=== PATIENT | female | born 1980 ===

== ENCOUNTER 2019-03-25 05:40 | Observation (INO) | payer BC ==
[2019-03-25] VITALS (18 sets, daily range): BP systolic 84–115; BP diastolic 38–72
[~2019-03-25] VITALS: Ht 157.5 cm; Wt 55.3 kg
[~2019-03-25 05:40] MED LIST: NAPROXEN500 M2 ORAL; OMEPRAZOLE20 M3 ORAL
[2019-03-25] MEDS ORDERED: cefOXitin Sod 2 GM in D5W 110 ML IVPB ONE (07:00)
[2019-03-25] MEDS ORDERED: Lidocaine 1% MPF 10mg/ml 5ml ONE (07:05)
[2019-03-25] MEDS ORDERED: Propofol 200mg/20ml IV ONE (07:05)
[2019-03-25] MEDS ORDERED: Midazolam 2mg/2ml Inj ONE (07:05)
[2019-03-25] MEDS ORDERED: fentaNYL 100 mcg/2 mL IV ONE (07:05)
[2019-03-25] MEDS ORDERED: Zemuron 50mg/5ml Inj IV ONE (07:24)
[2019-03-25] MEDS ORDERED: cefOXitin 1gm Inj ONE (07:24)
[2019-03-25] MEDS ORDERED: Succinylcholine 20mg/ml 10ml vial ONE (07:24)
[2019-03-25] MEDS ORDERED: ProvayBlue 5mg/ml 10ml amp INJ ONE (07:30)
[2019-03-25] MEDS ORDERED: LR 1000ml ONE (07:30)
[2019-03-25] MEDS ORDERED: Sterile Water Irrig 1000ml IRRIG ONE (07:30)
[2019-03-25] MEDS ORDERED: Neostigmine 1mg/ml 10ml Inj ONE (07:30)
[2019-03-25] MEDS ORDERED: NS Irrig 1000ml ONE (07:30)
[2019-03-25] MEDS ORDERED: Ropivacaine 5mg/ml Vial 30ml INJ ONE (07:37)
--- NOTE | 2019-03-25 07:45 | Pre-Procedure Note/Attestation ---
Pre-Procedure Note/Attestation Complete Prior to Procedure Planned Procedure: bilateral Procedure Narrative: Video Laser Laparoscopy, Video hysteroscopy Indications for Procedure Pre-Operative Diagnosis: Chronic pelvic pain, irregular uterine bleeding Attestation I attest that I discussed the nature of the procedure; its benefits; risks and complications; and alternatives (and the risks and benefits of such alternatives ), prior to the procedure, with the patient (or the patient's legal representative government relations). I attest that, if there was a reasonable possibility of needing a blood transfusion, the patient (or the patient's legal representative government relations) was given the [facility] standardized written summary, pursuant to the [place] Blood Safety Act ([place] Health and Safety Code # 1645, as amended). I attest that I re-evaluated the patient just prior to the surgery and that there has been no change in the patient's H&P, except as documented below:NONE Magan Rivera MD Mar 25, 2019 07:45
[2019-03-25] MEDS ORDERED: Ketorolac 30mg Inj ONE (08:18)
[2019-03-25] MEDS ORDERED: Glycopyrrolate 0.2mg/ml 1ml Vial ONE (08:18)
[2019-03-25] MEDS ORDERED: Morphine Sulfate 10mg/ml Inj ONE (08:18)
[2019-03-25] MEDS ORDERED: Sodium Chloride 10ml vial INJ ONE (08:18)
[2019-03-25] MEDS ORDERED: LR 1000ml 1,000 ML IVLG SCH (08:35)
--- NOTE | 2019-03-25 08:35 | Anethesia Preoperative Eval ---
Anesthesia Pre-op PMH/ROS General Date of Evaluation: Mar 25, 2019 Time of Evaluation: 07:15 Anesthesiologist: Catherine ASA Score: ASA 1 Mallampati Score Class I : Soft palate, uvula, fauces, pillars visible Class II: Soft palate, uvula, fauces visible Class III: Soft palate, base of uvula visible Class IV: Only hard plate visible Mallampati Classification: Class II Surgeon: Nicole Diagnosis: Pelvic pain Surgical Procedure: D&S Laparoscopy Anesthesia History: none Family History: no anesthesia problems Allergies: Coded Allergies: No Known Allergies (Unverified , 03/23/19) Medications: see eMAR Patient NPO?: Yes Past Medical History Cardiovascular: Denies: HTN, CAD, [place], valve dz, arrhythmia, other Pulmonary: Denies: asthma, COPD, SHERLY, other Gastrointestinal/Genitourinary: Reports: GERD; Denies: CRI, ESRD, other Neurologic/Psychiatric: Reports: other - chronic pain; Denies: dementia, CVA, depression/anxiety, TIA Endocrine: Denies: DM, hypothyroidism, steroids, other HEENT: Denies: cataract (L), cataract (R), glaucoma, [place] (L), [place] (R), other Hematology/Immune: Denies: anemia, DVT, bleeding disorder, other Musculoskeletal/Integumentary: Denies: OA, RA, DJD, DDD, edema, other PMH Narrative: as above PSxH Narrative: salpingectomy Anesthesia Pre-op Phys. Exam Physician Exam Last Vital Signs Date Time Temp Pulse Resp B/P (MAP) Pulse Ox O2 Delivery O2 Flow Rate FiO2 03/25/19 06:23 97.5 53 20 90/55 99 Room Air Constitutional: NAD Neurologic: CN 2-12 intact Cardiovascular: RRR, no M/R/G Gastrointestinal: S/NT/ND Airway Exam Mallampati Score: Class II MO: full Neck: flexible ROM: full Teeth: intact Dentures: no upper, no lower Anesthesia Pre-op A/P Labs see chart Urine Test Test 03/25/19 05:58 Urine HCG, Qualitative Negative (NEGATIVE) Studies Pre-op Studies: EKG - NSR Risk Assessment & Plan Assessment: ASA 2 Plan: GA with ETT PONV prevention Status Change Before Surgery: No Pre-Antibiotics Drug: Cefoxetin 1gr. Given Within 1 Hr of Incision: Yes Time Given: 08:15 Phoenix Alexander MD Mar 25, 2019 08:35
[2019-03-25] MEDS ORDERED: Ketorolac 30mg Inj IV PRN (08:45)
[2019-03-25] MEDS ORDERED: Meperidine 50mg/ml Inj(FOR RIGORS ONLY) IV PRN (08:45)
[2019-03-25] MEDS ORDERED: DiphenhydrAMINE 50mg/ml Inj IVP PRN (08:45)
[2019-03-25] MEDS ORDERED: Metoclopramide 10mg/2ml Inj IVP PRN (08:45)
[2019-03-25] MEDS ORDERED: NS Irrig 1000ml IRRIG ONE ×2 (09:12→09:13)
--- NOTE | 2019-03-25 09:56 | Immediate Post-Op Evaluation ---
Immediate Post-Op Evalulation Immediate Post-Op Evalulation Procedure: D&C Hysteroscopy Laparoscopic treatment of endometriosis Date of Evaluation: Mar 25, 2019 Time of Evaluation: 09:55 IV Fluids: 1000 Blood Products: none Estimated Blood Loss: 50 Urinary Output: 200 Blood Pressure Systolic: 115 Blood Pressure Diastolic: 56 Pulse Rate: 72 Respiratory Rate: 20 O2 Sat by Pulse Oximetry: 98 Temperature (Fahrenheit): 97.4 Pain Score (1-10): 1 Nausea: No Vomiting: No Complications none Patient Status: reacts, patent, extubated, none Hydration Status: adequate Phoenix Alexander MD Mar 25, 2019 09:56
[2019-03-25] MEDS ORDERED: HYDROmorphone 1mg/ml Carpuject SUBQ PRN (10:00)
[2019-03-25] MEDS ORDERED: HYDROcodone/Acetamin 5/325 tab ORAL PRN ×2 (10:00→17:30)
[2019-03-25] MEDS ORDERED: Tylenol #3 tab (300mg/30mg) ORAL PRN (10:00)
--- NOTE | 2019-03-25 10:02 | Brief Operative Note ---
Immediate Post Operative Note Operative Note Pre-op Diagnosis: Chronic pelvic pain, irregular uterine bleeding Procedure: D&C, Hysteroscopy, ECC, EMC, Video Laser Pelviscopy with vaporization of endometriosis - multiple lesions, Enterolysis, excision of abdominal wall endometriosis Post-op Diagnosis: Pelvic Endometriosis, pelvic pain, pelvic adhesions, bowel adhesions Findings: consistent w/pre-op dx studies Surgeon: Dipika Rivera MD Mineral Surveying Technician: Bina Leon MD Anesthesiologist: Earnestine Alexander MD Anesthesia: general Specimen: yes - ECC, EMC, Abdom wall tissue, Uterine tissue Complications: none Condition: stable Fluids: LR D5 @ 125 cc.hr Estimated Blood Loss: minimal Drains: none Implant(s) used?: No - 75 cc Dipika Rivera MD Mar 25, 2019 10:02
--- NOTE | 2019-03-25 12:06 | 48 Hour Post Anesthesia Eval ---
Post Anesthesia Evaluation Procedure: D&C Hysteroscopy Laparoscopic treatment of endometriosis Date of Evaluation: Mar 25, 2019 Time of Evaluation: 12:05 Blood Pressure Systolic: 92 - 56 0: 56 Pulse Rate: 72 Respiratory Rate: 20 Temperature (Fahrenheit): 97.6 O2 Sat by Pulse Oximetry: 98 Airway: patent Nausea: No Vomiting: No Pain Intensity: 1 Hydration Status: adequate Cardiopulmonary Status: stable Mental Status/LOC: patient returned to baseline Follow-up Care/Observations: n/a Post-Anesthesia Complications: none Follow-up care needed: ready to discharge Phoenix Alexander MD Mar 25, 2019 12:06
--- NOTE | 2019-03-25 16:00 | Operative Note - Dictated ---
DATE OF OPERATION: 03/25/2019 PREOPERATIVE DIAGNOSES: Severe pelvic pain, severe dysmenorrhea, history of endometriosis, and history of multiple previous surgeries. PROCEDURE PERFORMED: Video laser pelviscopy with enterolysis, video laser pelviscopy with extensive lysis of pelvic adhesions, video laser pelviscopy with excision of abdominal wall endometriosis, video laser pelviscopy with vaporization of pelvic and abdominal endometriosis, video hysteroscopy, endocervical curettage, endometrial curettage, and biopsy of the uterine lesion. SURGEON: Magan Rivera M.D. MACHINE CANDLE MOLDER: Bina Leon M.D. ANESTHESIOLOGIST: Phoenix Alexander M.D. ANESTHESIA: General endotracheal. PROCEDURE IN DETAIL: After appropriate consents were signed, the patient was brought to the operating room, placed on table in supine position. General endotracheal anesthesia was induced without complication. The patient was then placed in a dorsal lithotomy position. Perineum, vagina, and abdomen were prepped and draped in the usual fashion for the procedure. The patient was examined under anesthesia. Cervix was identified and the cervical os was dilated to admit the video hysteroscope. Uterine cavity could be identified, however, both tubes could not be seen. There was only 1 of the tubal ostia, which was not well defined. At this time, endocervical curettage was performed followed by endometrial curettage. Both specimens submitted to pathology for evaluation. Uterine manipulator was placed and the abdominal portion of the procedure began by placing a Veress needle and insufflating the abdomen to 15 mmHg through the umbilicus. The umbilical incision was then used to advance the 11 mm trocar. Two additional trocars were placed in the midline and the left lower quadrant of the patient. The procedure then continued with visualizing the pelvis. There were obvious multiple adhesions in the pelvis and multiple areas of endometriosis visible. The left tube was completely wrapped around the uterus and attaching towards the right side of the uterine fundus. The left ovary was completely sucked underneath the uterus and was fully attached to the left pelvic sidewall anteriorly underneath the uterus. There were bowel adhesions on the right side and some bowel adhesions to the uterus itself. At this time, the procedure began with video laser pelviscopy to proceed with enterolysis that allowed visibility in the pelvis and additional pelvic adhesiolysis was undertaken to visualize the tube and the ovaries fully. At this time, several areas of endometriosis were excised and vaporized. White endometriosis on the left pelvic sidewall was also biopsied. There were multiple bowel adhesions on the right pelvic sidewall. These were gradually lysed and all the adhesions were taken down. The upper abdomen was now fully visualized and was within normal. There did not appear to be any liver adhesions. Once this was completed, the uterus was examined now that it could be well visualized. There was an anterior mass on the uterus, which was biopsied. It was likely adenomyosis. The remaining of the mass was vaporized using CO2 laser to reduce some of the patient's pain during the menses. At this time, when all the endometriosis and adhesions were treated, the patient was once again evaluated and the pelvis was found hemostatic after the several small bleeders were coagulated. The patient's punctures were fully examined after the instruments were removed and all the punctures were fully hemostatic. The midline trocar from the umbilicus was removed with laparoscopy removal. Incisions were now closed using 0 Vicryl suture at the fascia layer and Steri-Strips and benzoin at the skin layer. The patient was awakened from general anesthesia, placed in supine position, and transferred to the recovery room in excellent condition. Magan Rivera M.D. DR: MICHAEL JOB#: [id number] CC:
--- NOTE | 2019-03-25 17:14 | NUR ---
Dr. Rivera notified re: patient unable to void and with orders.
--- NOTE | 2019-03-25 17:45 | NUR ---
Rodriguez catheter Fr. 16 inserted without difficulty and obtained 500ml of clear yellow urine.
--- NOTE | 2019-03-25 18:30 | NUR ---
NURSE NOTES: Patient received from ER via gurney at 1830, in stable condition. No SOB on RA, denies pain/NV. IV to left hand intact, site asymptomatic. FC patent, draining y/cl urine to gravity (orders to DC in AM and make sure patient voids prior to DC). Abdominal dressing x3 intact, lower (stained/shadow), others CDI. Oriented patient to room and call light for safety. All belongings with family member. Will endorse orders/POC to next shift.
--- NOTE | 2019-03-25 20:05 | NUR ---
HAND-OFF: Report given to Camryn WRAY. Addendum: 03/25/19 at 2026 by Tali Rios RN Endorsed orders for DC bowie at 0600, make sure patient voids prior to DC and discharge 03/26 (23 hour observation).
--- NOTE | 2019-03-25 20:07 | NUR ---
NURSE NOTES: Pt received in bed, alert and oriented, able to make needs known, call light within reach, no c/o pain or signs of distress, will continue to monitor, bowie catheter in place and will plan to DC in AM and needs to void prior to discharge.
[2019-03-25] MEDS: D5 1/2NS 1,000 ML IV SCH (20:17)
[2019-03-26] VITALS: BP 105/66
[2019-03-26 04:00] VITALS: BP 89/57
[2019-03-26 04:30] VITALS: BP 90/54
[2019-03-26] MEDS: D5 1/2NS 1,000 ML IV SCH ×2 (05:22→08:39)
--- NOTE | 2019-03-26 06:48 | NUR ---
NURSE NOTES: Left message with doctors exchange for Magan Chahal regarding pt current BP of 90/54, previous BP 89/57.
--- NOTE | 2019-03-26 07:44 | NUR ---
HAND-OFF: Report given to Dianna Sánchez RN.
[2019-03-26] MEDS ORDERED: IBUPROFEN600 MG ORAL (07:47)
[2019-03-26] MEDS ORDERED: NORCO 5-325 TA1 EACH ORAL ×2 (07:49→07:52)
[2019-03-26 08:00] VITALS: BP 95/63
--- NOTE | 2019-03-26 08:01 | NUR ---
NURSE NOTES: Received report from KAMALA Cowan. Rounding done with outgoing nurse. Patient is a/o x 4 having breakfast, sitting on the chair. Patient c/o pain of lower abdominal area as 8/10. Pain medicine will be given as MD ordered. No active bleeding noted. Call light within reach. Will continue to monitor.
--- NOTE | 2019-03-26 10:09 | NUR ---
NURSE NOTES: received call back from dr Rivera at 0900, relayed to md pt c/o cramps and bloated feeling, per md , just needs to ambulate, pt voided 500ml urine , pt left in stable condition
--- NOTE | 2019-03-26 10:10 | NUR ---
NURSE NOTES: Dr. Rivera called pt's pharmacy for [place] order. Discharge instruction was given. Belongings checked with the family. Arm band and IV line were removed. Patient discharged with her family in stable condition.
--- NOTE | 2019-03-26 15:21 | NUR ---
CASE MANAGEMENT: INITIAL REVIEW 03/25/2019 39 YO F PRESENTED TO HOSPITAL FOR SURGERY SI:POST OP URINARY RETENTION T 97.5 HR 53 RR 20 B/P 90/55 SATS 99% ON RA HCG (-) IS: OR MEDS PATIENT ADMITTED UNDER OBS 03/25 @ 1900 DCP: PATIENT TO BE DISCHARGED TO HOME ONCE MEDICALLY CLEARED. PLAN OF CARE: Pre-op Diagnosis: Chronic pelvic pain, irregular uterine bleeding Procedure: D&C, Hysteroscopy, ECC, EMC, Video Laser Pelviscopy with vaporization of endometriosis - multiple lesions, Enterolysis, excision of abdominal wall endometriosis Post-op Diagnosis: Pelvic Endometriosis, pelvic pain, pelvic adhesions, bowel adhesions 03/26/2019 >>>> PATIENT DC TO HOME
--- NOTE | 2019-03-30 18:24 | Discharge Summary ---
Discharge Summary Hospital Course Date of Admission Mar 25, 2019 at 18:15 Date of Discharge Mar 26, 2019 at 10:00 Admitting Diagnosis Severe pelvic pain Severe dysmenorrhea History of endometriosis Reason for Hospitalization: elective surgery HPI Beti Roque is a 39 year old female who was admitted on Mar 25, 2019 at 18: 15 for Severe pelvic pain, Severe dysmenorrhea, History of endometriosis. Patient was admitted for elective surgery Procedures s/p 03/25/[address] Rivera Video laser pelviscopy with enterolysis, video laser pelviscopy with extensive lysis of pelvic adhesions, video laser pelviscopy with excision of abdominal wall endometriosis, video laser pelviscopy with vaporization of pelvic and abdominal endometriosis, video hysteroscopy, endocervical curettage, endometrial curettage, and biopsy of the uterine lesion. Hospital Course s/p surgery initially IVF s/p perioperative antibiotic pain management addressed, pain controlled, voided freely ambulated tolerated diet patient was stable for discharge discharge instructions provided, outpatient fup with surgeon as advised by surgeon FINAL DIAGNOSES Severe pelvic pain Severe dysmenorrhea History of endometriosis History of multiple previous surgeries s/p D&C , Hysteroscopy, Laparoscopic treatment of endometriosis Discharge Medications Changed Medications: Hydrocodone Bit/Acetaminophen 5-325* ([place] 5-325*) 1 Each Tablet 1 TAB ORAL Q3HR PRN for For Pain, #12 TAB 0 Refills (Changed from: Q4H) Mild pain (1-3) Hydrocodone Bit/Acetaminophen 5-325* ([place] 5-325*) 1 Each Tablet 1 TAB ORAL Q4H PRN for For Pain, #10 TAB 0 Refills (Medication details modified) Moderate Pain (4-6) Ibuprofen* (Motrin*) 600 Mg Tablet 600 MG ORAL Q6H, #30 TAB 0 Refills (Changed from: Removed Reason) Continued Medications: Omeprazole (Omeprazole) 20 Mg Tablet. 20 MG ORAL DAILY, TAB (This prescription has been renewed) Discontinued Medications: Naproxen* (Naproxen*) 500 Mg Tablet 500 MG ORAL NEEDED, TAB Discharge Condition Upon Discharge: stable Discharge Disposition Patient was discharged home Discharge Instructions Discharge Instructions Special Instructions I have been assigned to complete a D/C Summary on this account. I was not involved in the patient management La Nena Lauren NP Mar 30, 2019 18:24
== END 2019-03-26 10:00 | disposition home or self-care (01) ==
LOC: SUR 05:40 → INTOOBSV 18:15 → 4E 18:15 → OBSVTOIN 18:15
DX: N80.3 Endometriosis of pelvic peritoneum (principal); R10.2 Pelvic and perineal pain; N94.6 Dysmenorrhea, unspecified; Z90.721 Acquired absence of ovaries, unilateral; D25.9 Leiomyoma of uterus, unspecified; K21.9 Gastro-esophageal reflux disease without esophagitis
CPT/HCPCS: 58558; 58662; 81025; 96360; 96361; J0330; J0694; J1885; J2175; J2250; J2270; J2405; J2704; J2710; J2795; J3010; 94003; 94150